=== PATIENT | female | born 1950 | race Caucasian/White ===

== ENCOUNTER 2018-09-06 06:39 | Inpatient (IN) | payer OTHER, BC ==
[2018-09-01 11:38] VITALS: BMI 29.9
[2018-09-06] MEDS ORDERED: oxyCODONE HCL 5 MG TABLET PO PRN (07:17)
[2018-09-06] MEDS ORDERED: ONDANSETRON 4 MG/2 ML VIAL IVPUSH PRN ×2 (07:17→11:08)
[2018-09-06] MEDS ORDERED: oxyCODONE HCL 10 MG SUSTAINED ACTING TABLET PO ONE (07:26)
[2018-09-06] MEDS ORDERED: GUM MASTIC/STORAX/MSAL/ALCOHOL 1 DRP DROPSBTL MC ONE (07:30)
[2018-09-06] MEDS ORDERED: THROMBIN (RECOMBINANT) 5,000 UNIT VIAL TP ONE (07:30)
[2018-09-06] MEDS ORDERED: LACTATED RINGERS SOLUTION 1,000 ML IV SCH ×2 (07:30→11:15)
--- NOTE | 2018-09-06 07:43 | HP ---
History & Physical Update - History History: No Change - Physical Physical: No Change - Assessment Assessment: No Change - Plan Plan: No Change
[2018-09-06] MEDS ORDERED: MIDAZOLAM HCL 2 MG/2 ML SINGLE DOSE VIAL ONE ×3 (08:15→10:16)
[2018-09-06] MEDS ORDERED: BUPIVACAINE HCL/PF (5 MG/ML) 30 ML VIAL IJ ONE (08:15)
[2018-09-06] MEDS ORDERED: BUPIVACAINE LIPOSOME/PF (EXPAREL) 266 MG/20 ML VIAL ONE (08:15)
[2018-09-06] MEDS ORDERED: BUPIVACAINE HCL/PF 0.5% (5MG/ML) 10 ML VIAL ONE (08:33)
[2018-09-06] MEDS ORDERED: ONDANSETRON 4 MG/2 ML VIAL ONE (09:06)
[2018-09-06] MEDS ORDERED: KETOROLAC TROMETHAMINE 30 MG/1 ML VIAL ONE (09:06)
[2018-09-06] MEDS ORDERED: ceFAZolin SODIUM 1 GM VIAL ONE (09:06)
[2018-09-06] MEDS ORDERED: DEXAMETHASONE SOD PHOSPHATE 4 MG/1 ML VIAL ONE (09:06)
[2018-09-06] MEDS ORDERED: THROMBIN (BOVINE) 5,000 UNIT VIAL TP ONE (09:33)
[2018-09-06] MEDS ORDERED: GELATIN SPONGE,ABSORBABLE 1 GM PACKET TP ONE (09:34)
[2018-09-06] MEDS: ACETAMINOPHEN 1000 MG/100 ML VIAL (NON FORMULARY) IVPB ONE ×2 (11:04→11:40)
[2018-09-06] MEDS ORDERED: KETOROLAC TROMETHAMINE 15 MG/ML VIAL IVPUSH PRN (11:08)
--- NOTE | 2018-09-06 11:23 | OP ---
Operative Note - Note: Operative Date: 09/06/18 Pre-Operative Diagnosis: lumbar spondylolisthesis Operation: posterior lumbar decompression, instrumentation, fusion. Transforaminal lumbar L4-L5 interbody fusion with allograft and neuromonitoring Surgeon: Paco De La Rosa Brake Adjuster: Gretchen Guzman Anesthesiologist/TECHNOLOGIST DEVELOPMENT: Roc Felder Anesthesia: Spinal Estimated Blood Loss (mls): 20 Fluid Volume Replaced (mls): 800 Operative Report Dictated: Yes
--- NOTE | 2018-09-06 11:24 | SURG ---
Surgery Equipment Cleaner And Tester Note Equipment Cleaner And Tester: Gretchen Guzman PA-C Date of Service: 09/06/18 Diagnosis: lumbar spondylolisthesis Procedure: posterior lumbar decompression, instrumentation, fusion. Transforaminal lumbar L4-L5 interbody fusion with allograft and neuromonitoring I was present for the entirety of the operative procedure. For further detail, please refer to operative report. Visit type - Case Type Case Type: Scheduled - Emergency Emergency Visit: No - New patient This patient is new to me today: Yes Date on this admission: 09/06/18
[2018-09-06] MEDS ORDERED: ACETAMINOPHEN INJECTION 100 ML IVPB ONE (11:26)
--- NOTE | 2018-09-06 15:05 | OP ---
DATE OF OPERATION: 09/06/2018 PREOPERATIVE DIAGNOSES: 1. Spondylolisthesis, L4-5. 2. Spinal stenosis, L4-5. POSTOPERATIVE DIAGNOSES: 1. Spondylolisthesis, L4-5. 2. Spinal stenosis, L4-5. PROCEDURE PERFORMED: 1. Transforaminal lumbar interbody fusion, L4-5. 2. Placement of instrumentation, L4-5. 3. Placement of prosthetic cage. SURGEON: Paco De La Rosa MD SUPERVISOR RIPRAP PLACING: TERESO Nunez ESTIMATED BLOOD LOSS: 50 mL. IV FLUIDS: Per Anesthesia. ANESTHESIA: Spinal/TLIP. COMPLICATIONS: There were none. DISPOSITION: Patient brought to the PACU in stable condition. INDICATION FOR SURGERY: The patient is a 67-year-old female who has been suffering from pain from her back down her leg. X-rays and MRI were completed, which noted that she had spinal stenosis at L4-5 secondary to spondylolisthesis. She had gone through an exhaustive course of treatment for this, which included medications, physical therapy as well as injections. Risks, benefits, alternatives discussed and the patient consented to surgery. OPERATIVE NOTE: The patient was brought to the operating room by anesthesia staff. After appropriate patient identification was performed, spinal anesthesia was given. A TLIP block was also given. The patient was able to position herself prone onto the OR table with all areas of bony prominences well padded at this time. The C-arm was brought in. The L4 and L5 pedicles were marked off. Her back was prepped and draped in a sterile manner. At this point timeout was completed. Incision were made bilaterally over the L4-L5 pedicles. Dissection was carried down to the fascia. The fascia was then split at this time. Under C-arm guidance, trocars were advanced into both the L4 and L5 pedicles. Through the trocar, a wire was inserted. Over the wire, tap was performed and screws were inserted. Retractor blades were set up to expose the left L4-5 facet joint. The facet joint was removed. Using a series of pituitaries, Kerrisons, curettes, the diskectomy was completed. The endplates were decorticated at this time. Bone graft was laid down. A cage filled with bone graft was placed in. TLIF heads were placed over the screws. A shahrzad was measured and placed in. Caps were placed on. Compression was applied and final tightening was performed. On the right-hand side, the shahrzad was measured and placed in. Caps and compression were applied. The fascia was closed with a number 1 Vicryl suture, subcutaneous tissues closed with 2-0 Vicryl sutures, skin was closed with 3-0 Monocryl suture. Dermabond was applied, Steri-Strips were applied, a sterile dressing was applied. Patient was placed supine on OR bed, brought to the PACU in stable condition. Carole ACOSTA/[id number]
[2018-09-06] MEDS: oxyCODONE HCL 5 MG TABLET PO PRN ×2 (16:40→21:40)
[2018-09-06] MEDS: CEFAZOLIN 1 GM/D5W 1 GM/50 ML BAG IVPB SCH (16:41)
[2018-09-06] MEDS: ACETAMINOPHEN 325 MG TABLET (FP) PO SCH (17:59)
[2018-09-06] MEDS: diazePAM 2 MG TABLET PO SCH (17:59)
[2018-09-06] MEDS: DOCUSATE SODIUM 100 MG CAPSULE (FP) PO SCH (21:40)
[2018-09-07] MEDS: ACETAMINOPHEN 325 MG TABLET (FP) PO SCH ×2 (00:35→05:02)
[2018-09-07] MEDS: CEFAZOLIN 1 GM/D5W 1 GM/50 ML BAG IVPB SCH (01:51)
[2018-09-07] MEDS: diazePAM 2 MG TABLET PO SCH (05:01)
[2018-09-07] MEDS: oxyCODONE HCL 5 MG TABLET PO PRN (05:02)
[2018-09-07 07:50] LABS: HEMATOCRIT 30.8 % (32.4-45.2); HEMOGLOBIN 10.5 GM/dl (10.7-15.3); MCH 30.2 pg (25.7-33.7); MCHC 34.1 g/dl (32.0-36.0); MEAN CELL VOLUME 88.6 fl (80-96); MEAN PLT VOLUME 8.3 fl (7.5-11.1); PLATELET COUNT 242 K/MM3 (134-434); RBC 3.47 M/mm3 (3.60-5.2); RDW 12.3 % (11.6-15.6); WHITE BLOOD COUNT 12.9 K/mm3 (4.0-10.8)
[2018-09-07 08:43] LABS: CALCIUM 8.9 mg/dl (8.5-10); CREATININE 0.5 mg/dl (0.55-1.3); POTASSIUM 3.9 mmol/L (3.5-5.1)
--- NOTE | 2018-09-07 09:00 | DS ---
Physical Exam: SUBJECTIVE: Patient seen and examined OBJECTIVE: Vital Signs Temperature 98.3 F 09/07/18 09:30 Pulse Rate 92 H 09/07/18 09:30 Respiratory Rate 18 09/07/18 09:30 Blood Pressure 104/62 09/07/18 09:30 O2 Sat by Pulse Oximetry (%) 96 09/07/18 09:30 PHYSICAL EXAM GENERAL: The patient is awake, alert, and fully oriented, in no acute distress. HEAD: Normal with no signs of trauma. EYES: PERRL, extraocular movements intact, sclera anicteric, conjunctiva clear. ENT: Ears normal, nares patent, oropharynx clear without exudates, moist mucous membranes. NECK: Trachea midline, full range of motion, supple. LUNGS: Breath sounds equal, clear to auscultation bilaterally, no wheezes, no crackles, no accessory muscle use. HEART: Regular rate and rhythm, S1, S2 without murmur, rub or gallop. ABDOMEN: Soft, nontender, nondistended, normoactive bowel sounds, no guarding, no rebound, no hepatosplenomegaly, no masses. EXTREMITIES: 2+ pulses, warm, well-perfused, no edema. NEUROLOGICAL: Cranial nerves II through XII grossly intact. Normal speech, gait not observed. PSYCH: Normal mood, normal affect. SKIN: Warm, dry, normal turgor, no rashes or lesions noted. LABS CBC,CMP WBC 12.9 K/mm3 (4.0-10.8) H 09/07/18 07:09 RBC 3.47 M/mm3 (3.60-5.2) L 09/07/18 07:09 Hgb 10.5 GM/dl (10.7-15.3) L 09/07/18 07:09 Hct 30.8 % (32.4-45.2) L 09/07/18 07:09 MCV 88.6 fl (80-96) 09/07/18 07:09 MCH 30.2 pg (25.7-33.7) 09/07/18 07:09 MCHC 34.1 g/dl (32.0-36.0) 09/07/18 07:09 RDW 12.3 % (11.6-15.6) 09/07/18 07:09 Plt Count 242 K/MM3 (134-434) 09/07/18 07:09 MPV 8.3 fl (7.5-11.1) 09/07/18 07:09 Sodium 135 mmol/L (136-145) L 09/07/18 07:09 Potassium 3.9 mmol/L (3.5-5.1) 09/07/18 07:09 Chloride 100 mmol/L (98-107) 09/07/18 07:09 Carbon Dioxide 28 mmol/L (21-32) 09/07/18 07:09 Anion Gap 7 MMOL/L (8-16) L 09/07/18 07:09 BUN 11.0 mg/dl (7-18) 09/07/18 07:09 Creatinine 0.5 mg/dl (0.55-1.3) L 09/07/18 07:09 Est GFR (CKD-EPI)AfAm 115.26 09/07/18 07:09 Est GFR (CKD-EPI)NonAf 99.45 09/07/18 07:09 Random Glucose 120 mg/dl (74-106) H 09/07/18 07:09 Calcium 8.9 mg/dl (8.5-10) 09/07/18 07:09 HOSPITAL COURSE: Date of Admission:09/06/18 Date of Discharge: 09/07/18 Patient seen and examined Agree with above D/C Planning <Paco De La Rosa - Last Filed: 09/07/18 13:25> Physical Exam: SUBJECTIVE: Patient seen and examined. She has no complaints of pain in her legs , oob and ambulated. Pain located in her low back. No difficulties with urination. No CP/SOB. OBJECTIVE: Vital Signs Temperature 98.5 F 09/07/18 03:00 Pulse Rate 86 09/07/18 03:00 Respiratory Rate 19 09/07/18 03:00 Blood Pressure 120/64 09/07/18 03:00 O2 Sat by Pulse Oximetry (%) 100 09/07/18 06:47 PHYSICAL EXAM GENERAL: The patient is awake, alert, and fully oriented, in no acute distress. LUNGS: Breath sounds equal, clear to auscultation bilaterally. HEART: Regular rate and rhythm. ABDOMEN: Soft, nontender, nondistended, normoactive bowel sounds. EXTREMITIES: 2+ pulses, warm, well-perfused, no edema. SCDs in place. NEUROLOGICAL: Normal speech, gait not observed. 5/5 dorsi/plantar flextion b/l. EHL b/l. LABS CBC,CMP WBC 12.9 K/mm3 (4.0-10.8) H 09/07/18 07:09 RBC 3.47 M/mm3 (3.60-5.2) L 09/07/18 07:09 Hgb 10.5 GM/dl (10.7-15.3) L 09/07/18 07:09 Hct 30.8 % (32.4-45.2) L 09/07/18 07:09 MCV 88.6 fl (80-96) 09/07/18 07:09 MCH 30.2 pg (25.7-33.7) 09/07/18 07:09 MCHC 34.1 g/dl (32.0-36.0) 09/07/18 07:09 RDW 12.3 % (11.6-15.6) 09/07/18 07:09 Plt Count 242 K/MM3 (134-434) 09/07/18 07:09 MPV 8.3 fl (7.5-11.1) 09/07/18 07:09 Sodium 135 mmol/L (136-145) L 09/07/18 07:09 Potassium 3.9 mmol/L (3.5-5.1) 09/07/18 07:09 Chloride 100 mmol/L (98-107) 09/07/18 07:09 Carbon Dioxide 28 mmol/L (21-32) 09/07/18 07:09 Anion Gap 7 MMOL/L (8-16) L 09/07/18 07:09 BUN 11.0 mg/dl (7-18) 09/07/18 07:09 Creatinine 0.5 mg/dl (0.55-1.3) L 09/07/18 07:09 Est GFR (CKD-EPI)AfAm 115.26 09/07/18 07:09 Est GFR (CKD-EPI)NonAf 99.45 09/07/18 07:09 Random Glucose 120 mg/dl (74-106) H 09/07/18 07:09 Calcium 8.9 mg/dl (8.5-10) 09/07/18 07:09 HOSPITAL COURSE: The patient was admitted to the Med-Surg Unit after an elective repair of their lumbar spodylolisthesis. Now, s/p L4-L5 TLIF. The day of surgery, the patient ambulated the hallways with assistance. Narcotic and non-narcotic pain management control was achieved with an oral and IV approach. An xray was obtained and confirmed hardware placement at L4-L5, no fractures or dislocations. Cristina-operative IV ABX were administered. DVT prophylaxis was achieved with SCDs and early ambulation. The patient ambulated with Physical Therapy and no services were recommended upon discharge. Narcotic scripts and or muscle relaxants were checked with [place] [employer] ADVISOR prior to escibe. The discharge instructions and an oral pain management plan were reviewed with the patient. All questions answered. Above plan discussed with Dr. De La Rosa and agreed. Date of Admission:09/06/18 Date of Discharge: 09/07/18 Minutes to complete discharge: 20 <Gretchen Guzman - Last Filed: 09/09/18 10:59> Visit type - Case Type Case Type: Scheduled - Emergency Emergency Visit: No - New patient This patient is new to me today: No <Gretchen Guzman - Last Filed: 09/09/18 10:59>
[2018-09-07] MEDS: DOCUSATE SODIUM 100 MG CAPSULE (FP) PO SCH (09:15)
[2018-09-07 09:50] VITALS: BP 104/62; PULSE 92; TEMP 98.3
[2018-09-07] MEDS ORDERED: HYDROCHLOROTHIAZIDE 12.5 MG CAPSULE (FP) PO SCH (10:00)
[2018-09-07] MEDS ORDERED: PATIENT'S OWN MEDICATION (NON-FORMULARY) (Lisinopril/Hydrochlorothiazide [Lisinopril-Hctz PO SCH (10:00)
[2018-09-07] MEDS ORDERED: LISINOPRIL 20 MG TABLET (FP) PO SCH (10:00)
== END 2018-09-07 09:45 | disposition home or self-care (01) | DRG 460 ==
LOC: FM/S 06:39
PROVIDERS: ADMIT Orthopaedic Surgery Orthopaedic Surgery of the Spine; ATTEND Orthopaedic Surgery Orthopaedic Surgery of the Spine
PROC: 0ST20ZZ Resection of Lumbar Vertebral Disc, Open Approach (ICD-10-PCS; 2018-09-06)
PROC: 0SG00AJ Fusion of Lumbar Vertebral Joint with Interbody Fusion Device, Posterior Approach, Anterior Column, Open Approach (ICD-10-PCS; principal; 2018-09-06 09:30)
DX: M43.16 Spondylolisthesis, lumbar region (principal); M48.061 Spinal stenosis, lumbar region without neurogenic claudication
CPT/HCPCS: 36415; 72100-TC-FY; 80048; 85027; 94760; 97116-GP; 97161-GP; J0131